=== PATIENT | female | born 1985 | race Caucasian/White ===

== ENCOUNTER 2021-05-23 07:35 | Emergency (ER) | payer MEDICAID ==
[~2021-05-23] VITALS: Ht 165.1 cm; Wt 120.0 kg
[2021-05-23 07:41] VITALS: BP 0/0
[2021-05-23] MEDS ORDERED: EPINEPHRINE 0.1MG/ML (1:10,000) 10ML SYR ONE ×3 (07:56→09:13)
[2021-05-23] MEDS ORDERED: SODIUM BICARBONATE 8.4% 1 MEQ/ML 50ML SYR IV ONE (09:13)
[2021-05-23] MEDS ORDERED: ATROPINE SULFATE 1MG/10ML SYR ONE (09:13)
== END 2021-05-23 07:58 ==
LOC: ER 07:48
DX: I46.9 Cardiac arrest, cause unspecified (principal); Z88.5 Allergy status to narcotic agent
CPT/HCPCS: 31500; 82962; 99291; J0461; J3490